=== PATIENT | female | born 1980 ===

== ENCOUNTER 2016-07-25 17:25 | Emergency (ER) | payer SELFPAY ==
[2016-07-25 18:25] LABS: RBC URINE 128 /hpf (0-3); URINE BACTERIA FEW (<OCC); URINE BILIRUBIN NEGATIVE (NEGATIVE); URINE BLOOD 3+ (NEGATIVE); URINE COLOR Yellow (YELLOW); URINE GLUCOSE (UA) NORMAL (Normal); URINE KETONE NEGATIVE (NEGATIVE); URINE LEUKOCYTE ESTERASE 2+ Leu/uL (Negative); URINE PROTEIN NEGATIVE (NEGATIVE); URINE UROBILINOGEN NORMAL mg/dL (0.2-1.0); WBC URINE 94 /hpf (0-5)
[2016-07-25] MEDS ORDERED: Sodium Chloride 0.9% 1,000 ML IV ONE (18:53)
[2016-07-25 19:44] LABS: BASO # 0.1 K/uL (0.0-0.2); BASO % 0.6 % (0.0-2.0); EOS # 0.1 K/uL (0.0-0.7); EOS % 0.7 % (0.0-4.0); HEMATOCRIT 38.7 % (34.0-47.0); LYMPH # 3.1 K/uL (1.0-4.3); LYMPH % 33.4 % (20.0-40.0); MEAN CELL VOLUME 82.4 fL (81.0-99.0); MEAN CORPUSCULAR HEMOGLOBIN 26.7 pg (27.0-31.0); MEAN CORPUSCULAR HGB CONC 32.4 g/dL (33.0-37.0); MEAN PLATELET VOLUME 8.8 fL (7.2-11.7); MONO # 0.4 K/uL (0.0-0.8); MONO % 4.2 % (0.0-10.0); RED CELL DISTRIBUTION WIDTH 14.2 % (11.5-14.5); WHITE BLOOD COUNT 9.3 K/uL (4.8-10.8)
[2016-07-25 19:50] LABS: CHLORIDE 102 mmol/L (98-107); SODIUM 137 mmol/L (132-148)
[2016-07-25 19:51] LABS: POTASSIUM 3.5 mmol/L (3.6-5.2)
[2016-07-25 19:53] LABS: ALB/GLOB RATIO 1.1 (1.0-2.1); ALKALINE PHOSPHATASE 72 U/L (38-126); AST/SGOT 18 U/L (14-36); BILIRUBIN,TOTAL 0.5 mg/dL (0.2-1.3); BLOOD UREA NITROGEN 8 mg/dL (7-17); CARBON DIOXIDE 21 mmol/L (22-30); GFR AFRICAN-AMERICAN > 60; GLUCOSE,RANDOM 81 mg/dL (65-105); TOTAL PROTEIN 7.8 g/dL (6.3-8.3)
[2016-07-25 19:54] LABS: ALT/SGPT 17 U/L (9-52); CALCIUM 8.4 mg/dl (8.6-10.4)
--- NOTE | 2016-07-25 20:58 | C.PDOC ---
Time Seen by Provider: 07/25/16 17:57 Chief Complaint (Nursing): Female Genitourinary History Per: Patient Onset/Duration Of Symptoms: Days (1) Current Symptoms Are (Timing): Still Present Severity: Moderate Quality Of Discomfort: Cramping, "Pain" Alleviating Factors: None Additional History Per: Prior Records Abnormal Vaginal Bleeding: Yes Last Menstral Period: 06/13/16 Past Medical History Reviewed: Historical Data, Nursing Documentation, Vital Signs Vital Signs: Last Vital Signs Temp 97.8 F 07/25/16 17:29 Pulse 70 07/25/16 17:29 Resp 16 07/25/16 17:29 BP 127/85 07/25/16 17:29 Pulse Ox 100 07/25/16 20:58 - Medical History PMH: No Chronic Diseases Surgical History: No Surg Hx Family History: States: Unknown Family Hx - Social History Hx Tobacco Use: No Hx Alcohol Use: No Hx Substance Use: No - Immunization History Hx Tetanus Toxoid Vaccination: No Hx Influenza Vaccination: No Hx Pneumococcal Vaccination: No Review Of Systems Except As Marked, All Systems Reviewed And Found Negative. Constitutional: Negative for: Fever, Weakness Cardiovascular: Negative for: Chest Pain Respiratory: Negative for: Shortness of Breath Gastrointestinal: Positive for: Abdominal Pain (suprapubic) Genitourinary: Positive for: Dysuria (?), Vaginal Bleeding Musculoskeletal: Positive for: Back Pain (lower). Negative for: Neck Pain Skin: Negative for: Rash Neurological: Negative for: Weakness, Numbness, Seizures, Altered Mental Status Physical Exam - Physical Exam Appears: Non-toxic, No Acute Distress Skin: Normal Color, Warm, Dry, No Rash Head: Atraumatic, Normacephalic Eye(s): bilateral: PERRL, EOMI Neck: Normal ROM, Supple Cardiovascular: Rhythm Regular Respiratory: Normal Breath Sounds, No Accessory Muscle Use Gastrointestinal/Abdominal: Soft, Tenderness (suprapubic), No Guarding, No Rebound Back: No CVA Tenderness Extremity: Normal ROM, No Pedal Edema, No Calf Tenderness Neurological/Psych: Oriented x3, Normal Motor, Normal Sensation ED Course And Treatment - Laboratory Results Result Diagrams: 07/25/16 19:39 07/25/16 19:39 Interpretation Of Abnormal: UTI Urine POC: Positive O2 Sat by Pulse Oximetry: 100 Pulse Ox Interpretation: Normal - CT Scan/US Pelvic US Other Rad Studies (CT/US): Read By Radiologist, Radiology Report Reviewed CT/US Interpretation: IMPRESSION: Intrauterine gestation too early to date; left corpus luteum. . Additional findings as described above. . Followup suggested to document development of a pole Disposition Counseled Patient/Family Regarding: Studies Performed, Diagnosis, Need For Followup, Rx Given - Disposition Disposition: HOME/ ROUTINE Disposition Time: 21:28 Condition: IMPROVED Additional Instructions: Drink plenty of fluids. Pelvic rest as instructed. Follow up with your [facility] doctor within 1 week for further evaluation and treatment. Return to the ER if you develop fever, dizziness, vomiting, severe pain, heavy bleeding, worsening of symptoms or if you have any other concerns. Prescriptions: Acetaminophen [Tylenol Extra Strength] 2 tab PO Q6 PRN #30 tablet PRN Reason: Pain, Moderate (4-7) Cephalexin [cephalexin] 500 mg PO BID #14 cap Instructions: Urinary Tract Infection in (ED), Threatened Miscarriage (ED) Print Language: SLOVENIAN - Clinical Impression Clinical Impression: Threatened in early , UTI (urinary tract infection) during
--- NOTE | 2016-07-25 21:06 | US ---
EXAM: US First Trimester, Transabdominal CLINICAL HISTORY: 35 years old, female; Pain; complicated by abdominal or pelvic pain; Generalized abdominal pain; First trimester; Gestational age or lmp: 06/14/2016; ; Additional info: Pain/bleeding R/O ectopic TECHNIQUE: Real-time transabdominal obstetrical ultrasound of the maternal pelvis and a first trimester with image documentation. COMPARISON: There are no prior studies for comparison. FINDINGS: Uterus: Uterus is anteflexed. The uterus measures approximately 8.5 x 6.1 x 6.3 cm. There is a small gestational sac in uterus difficult to further characterize. Adnexa: Neither ovary is identified IMPRESSION: Early intrauterine gestation difficult to further evaluate EXAM: US , Transvaginal CLINICAL HISTORY: 35 years old, female; Pain; complicated by abdominal or pelvic pain; Generalized abdominal pain; First trimester; Gestational age or lmp: 06/14/2016; ; Additional info: Pain/bleeding R/O ectopic TECHNIQUE: Real-time transvaginal obstetrical ultrasound of the maternal pelvis and a first trimester with image documentation. Transvaginal imaging was used for better evaluation of the fetus and adnexa. EXAM DATE/TIME: 07/25/2016 6:55 PM COMPARISON: There are no prior studies for comparison. FINDINGS: Uterus: Uterus measures approximately 10 x 5.3 x 7.2 cm. Cervix measures approximately 4 cm in length. There are nabothian cysts in the cervix. Gestation: There is a single intrauterine gestation.Gestational sac has mean diameter 9.2 mm.A yolk sac is present, internal diameter measures 2.7 mm. A pole is visible Right ovary: Right ovary measures approximately 2.68 x 1.82 x 1.60 cm.There is expected blood flow on Doppler imaging Left ovary: Left ovary measures approximately 3.28 x 2.41 x 2.97 cm. There is a corpus luteum the left ovary. There is expected blood flow on Doppler imaging. IMPRESSION: Intrauterine gestation too early to date; left corpus luteum Additional findings as described above. Followup suggested to document development of a pole
[2016-07-25 22:14] VITALS: BP 118/76; PULSE 78; RESP 20; TEMP 98.2; O2SAT 98
== END 2016-07-25 22:10 | disposition home or self-care (01) ==
LOC: C.ER 17:25
DX: O20.0 Threatened abortion (principal); O23.41 Unspecified infection of urinary tract in pregnancy, first trimester; Z3A.00 Weeks of gestation of pregnancy not specified
CPT/HCPCS: 76805; 76817; 80053; 81001; 84702; 84703; 85025; 86850; 86900; 87086; 96360; 99284; J7040

== ENCOUNTER 2017-09-21 06:40 | Emergency (ER) | payer SELFPAY ==
--- NOTE | 2017-09-21 07:38 | C.PDOC ---
History Of Present Illness 36 y/o female with lmp 03/19/17, s/p termination on 08/23/17, c/o heavy vaginal bleeding and lower abdominal pain x 3 days. pt sts she is soaking one pad per hour. pt c/o dysuria starting today. no fever chills, nausea or vomiting. 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 p[t has not other complaints. Time Seen by Provider: 09/21/17 07:11 Chief Complaint (Nursing): Abdominal Pain History Per: Patient History/Exam Limitations: no limitations Onset/Duration Of Symptoms: Days (3) Current Symptoms Are (Timing): Still Present Location Of Pain/Discomfort: Suprapubic Radiation Of Pain To:: None Quality Of Discomfort: "Pain" Associated Symptoms: Urinary Symptoms. denies: Fever, Chills, Nausea, Vomiting Abnormal Vaginal Bleeding: Yes Last Menstral Period: 03/19/17, s/p termination 08/23/17 : 2 Para: 1 Miscarriage: 1 Past Medical History Reviewed: Historical Data, Nursing Documentation, Vital Signs Vital Signs: Last Vital Signs Temp 98.4 F 09/21/17 11:59 Pulse 70 09/21/17 11:59 Resp 18 09/21/17 11:59 BP 111/72 09/21/17 11:59 Pulse Ox 96 09/21/17 11:59 - Medical History PMH: No Chronic Diseases Family History: States: Unknown Family Hx - Social History Hx Tobacco Use: No Hx Alcohol Use: No Hx Substance Use: No - Immunization History Hx Tetanus Toxoid Vaccination: No Hx Influenza Vaccination: No Hx Pneumococcal Vaccination: No Review Of Systems Constitutional: Negative for: Fever, Chills Gastrointestinal: Positive for: Abdominal Pain (suprapubic). Negative for: Nausea, Vomiting Genitourinary: Positive for: Dysuria, Vaginal Bleeding Skin: Negative for: Rash Neurological: Negative for: Weakness, Numbness Physical Exam - Physical Exam Appears: Non-toxic, No Acute Distress Skin: Warm, Dry Head: Atraumatic, Normacephalic Eye(s): bilateral: Normal Inspection Oral Mucosa: Moist Cardiovascular: Rhythm Regular, No Murmur Respiratory: No Decreased Breath Sounds, No Wheezing Gastrointestinal/Abdominal: Bowel Sounds, Soft, Tenderness (mild in suprapubic and left pelvic area), No Distention, No Guarding, No Rebound Neurological/Psych: Oriented x3, Normal Speech, Normal Cognition ED Course And Treatment - Laboratory Results Result Diagrams: 09/21/17 07:51 09/21/17 07:51 Urine POC: Negative O2 Sat by Pulse Oximetry: 99 - CT Scan/US pelvic Other Rad Studies (CT/US): Radiology Report Reviewed CT/US Interpretation: Solitary 2.0 cm lower uterine segment intramural anterior wall fibroid to the left. 4.2 cm septated cyst in the right ovary. No evidence for torsion. Follow-up ultrasound in three-month interval is recommended to assess stability/resolution. Medical Decision Making Medical Decision Makin36 y/o female 1 m s/p termination with heavy vag bleeding and lower abdominal pain; check labs, beta hcg. re-eval 1137 us shows uterine fibroid, and right ovarian cyst, d/c home with tax assessor f/u and repeat sono 3 months. pt with 6 wbc in ua, is symptomatic, devendra tx. Disposition Counseled Patient/Family Regarding: Studies Performed, Diagnosis, Need For Followup - Disposition Referrals: [facility] [Outside] Disposition: HOME/ ROUTINE Disposition Time: 11:35 Condition: GOOD Additional Instructions: La ecografa muestra un quiste ovrico derecho y un fibroma en el tero. La hemorragia que tiene hoy es probablemente berry perodo, tome antibiticos segn lo prescrito, gracie un seguimiento con berry ginecologa en la prxima semana. Recomiende que se gracie otra ecografa para evaluar el quiste ovrico en soraida meses. The ultrasound shows a right ovarian cyst and a fibroid in your uterus. The bleeding you have today is likely your period, Please take antibiotics as prescribed, Follow up with your gynecologiat in the next week. Recommend that you get another ultrasound to evaluation ovarian cyst in three months. Prescriptions: Nitrofurantoin Macrocrystals [Macrobid] 100 mg PO BID #14 cap Instructions: Urinary Tract Infection, Adult (DC), Ovarian Cyst (DC), Uterine Fibroids (DC) Forms: Gen Discharge Inst Polish, [employer] (Polish) Print Language: PANAMANIAN - Clinical Impression Clinical Impression: Ovarian cyst, right, Uterine fibroid, UTI (urinary tract infection)
[2017-09-21 07:58] LABS: SQUAMOUS EPITHIAL 4 /hpf (0-5); URINE BILIRUBIN NEGATIVE (NEGATIVE); URINE BLOOD 3+ (NEGATIVE); URINE CLARITY Hazy (Clear); URINE COLOR Yellow (YELLOW); URINE GLUCOSE (UA) NORMAL (Normal); URINE LEUKOCYTE ESTERASE TRACE Leu/uL (Negative); URINE PROTEIN NEGATIVE (NEGATIVE); URINE UROBILINOGEN NORMAL mg/dL (0.2-1.0)
[2017-09-21 08:05] LABS: BASO # 0.1 K/uL (0.0-0.2); BASO % 0.7 % (0.0-2.0); EOS # 0.1 K/uL (0.0-0.7); EOS % 1.6 % (0.0-4.0); HEMOGLOBIN 11.2 g/dL (11.0-16.0); LYMPH # 2.2 K/uL (1.0-4.3); LYMPH % 31.9 % (20.0-40.0); MEAN CORPUSCULAR HEMOGLOBIN 27.1 pg (27.0-31.0); MEAN CORPUSCULAR HGB CONC 33.7 g/dL (33.0-37.0); MEAN PLATELET VOLUME 8.7 fL (7.2-11.7); MONO # 0.5 K/uL (0.0-0.8); MONO % 6.9 % (0.0-10.0); NEUT # 4.1 K/uL (1.8-7.0); NEUT % 58.9 % (50.0-75.0); NRBC % 0.1 % (0.0-2.0); RBC 4.15 Mil/uL (3.80-5.20); RED CELL DISTRIBUTION WIDTH 21.5 % (11.5-14.5)
[2017-09-21 08:06] LABS: MEAN CELL VOLUME 80.3 fL (81.0-99.0)
[2017-09-21 08:12] LABS: ALB/GLOB RATIO 1.1 (1.0-2.1); ALT/SGPT 18 U/L (9-52); AST/SGOT 17 U/L (14-36); BLOOD UREA NITROGEN 12 mg/dL (7-17); CALCIUM 8.4 mg/dl (8.6-10.4); GFR AFRICAN-AMERICAN > 60; GFR NON-AFRICAN AMERICAN > 60
--- NOTE | 2017-09-21 11:32 | US ---
HISTORY: s/p termination. vag bleeding COMPARISON: None available. TECHNIQUE: Transabdominal and transvaginal pelvic ultrasound was performed. FINDINGS: UTERUS: Measures 10.4 x 4.9 x 6.6 cm. Anteverted and normal in size. There is a 2.0 x 1.6 x 2.0 cm intramural lower uterine segment anterior wall fibroid to the left. ENDOMETRIUM: Measures 4.3 mm in diameter. Unremarkable. CERVIX: No cervical abnormality identified. RIGHT OVARY: Enlarged and measures 5.2 x 2.7 x 4.1 cm. No solid mass. Normal flow. There is a 4.2 x 2.4 x 3.8 cm septated cyst. LEFT OVARY: Measures 2.1 x 1.5 x 2.6 cm. No solid mass. Normal flow. FREE FLUID: No significant free fluid noted. OTHER FINDINGS: None. IMPRESSION: Solitary 2.0 cm lower uterine segment intramural anterior wall fibroid to the left. 4.2 cm septated cyst in the right ovary. No evidence for torsion. Follow-up ultrasound in three-month interval is recommended to assess stability/resolution.
[2017-09-21 12:45] VITALS: BP 111/72; PULSE 70; RESP 18; TEMP 98.4
[2017-09-21 19:15] VITALS: O2SAT 99
== END 2017-09-21 12:45 | disposition home or self-care (01) ==
LOC: C.ER 06:40
DX: N83.201 Unspecified ovarian cyst, right side (principal); D25.9 Leiomyoma of uterus, unspecified; N39.0 Urinary tract infection, site not specified

== ENCOUNTER 2018-06-04 15:12 | Outpatient (CLI) | payer SELFPAY | END 2018-06-04 15:13 | disposition home or self-care (01) | LOC: C.USIC 15:12 ==

== ENCOUNTER 2018-06-26 09:26 | Outpatient (CLI) | payer SELFPAY | END 2018-06-26 09:27 | disposition home or self-care (01) | LOC: C.LAB 09:26 | DX: Z34.91 Encounter for supervision of normal pregnancy, unspecified, first trimester (principal) ==

== ENCOUNTER 2018-08-24 13:01 | Emergency (ER) | payer SELFPAY ==
--- NOTE | 2018-08-24 13:44 | C.PDOC ---
History Of Present Illness 37 yr old F at 18 weeks p/w vaginal bleeding. Pt notes vaginal bleeding this morning after having sex with her . She notes only 1 clot, small. No pain or other vaginal d/c. No Rash. No fall or trauma. No abdominal pain, constipation or diarrhea. No dark or bloody stool. No nausea or vomiting. No dysuria, urgency or frequency. No other complaints. LMP: 04/23/18 [employer] O[employer]: [facility]: [place] Time Seen by Provider: 08/24/18 13:17 Chief Complaint (Nursing): Female Genitourinary Past Medical History Vital Signs: Last Vital Signs Temp 97.9 F 08/24/18 13:05 Pulse 75 08/24/18 13:05 Resp 20 08/24/18 13:05 BP 119/79 08/24/18 13:05 Pulse Ox 100 08/24/18 13:05 Primary Care Provider: Catherine Rick Family History: States: Unknown Family Hx - Social History Hx Tobacco Use: No Hx Alcohol Use: No Hx Substance Use: No - Immunization History Hx Tetanus Toxoid Vaccination: No Hx Influenza Vaccination: No Hx Pneumococcal Vaccination: No Review Of Systems Constitutional: Negative for: Fever, Chills, Sweats, Weakness, Malaise Eyes: Negative for: Pain, Vision Change, Eyelid Inflammation, Redness ENT: Negative for: Ear Pain, Ear Discharge, Nose Pain, Nose Congestion, Mouth Pain, Mouth Swelling Cardiovascular: Negative for: Chest Pain, Palpitations, Orthopnea Respiratory: Negative for: Cough, Shortness of Breath, SOB with Excertion, Pleuritic Pain, Sputum Gastrointestinal: Negative for: Nausea, Vomiting, Abdominal Pain, Diarrhea, Constipation, Melena, Hematochezia, Hematemesis Genitourinary: Positive for: Vaginal Bleeding. Negative for: Dysuria, Frequency, Incontinence, Hematuria, Vaginal Discharge, Pelvic Pain Musculoskeletal: Negative for: Neck Pain, Shoulder Pain, Arm Pain, Back Pain, Hand Pain, Leg Pain Skin: Negative for: Rash, Lesions, Jaundice, Bruising Neurological: Negative for: Weakness, Numbness, Altered Mental Status, Headache Psych: Negative for: Anxiety, Depression, Psychosis, Suicidal ideation Physical Exam - Physical Exam Appears: Well, Non-toxic, No Acute Distress Skin: Normal Color, Warm, Dry Head: Atraumatic, Normacephalic Eye(s): bilateral: Normal Inspection, PERRL, EOMI Ear(s): Bilateral: Normal Nose: Normal Tongue: Normal Appearing Lips: Normal Appearing Throat: Normal, No Erythema, No Exudate, No Drooling, No Mass Neck: Normal, Normal ROM, Supple, Other (no meningeal signs) Lymphatic: No Adenopathy Cardiovascular: Rhythm Regular, No Friction Rub, No Murmur, No JVD Respiratory: Normal Breath Sounds, No Rales, No Rhonchi, No Stridor, No Wheezing Gastrointestinal/Abdominal: Normal Exam, Soft, No Tenderness, No Organomegaly, No Mass, No Distention, No Guarding Back: Normal Inspection, No CVA Tenderness, No Vertebral Tenderness Extremity: Normal ROM, No Tenderness, No Pedal Edema Extremity: Bilateral: Atraumatic Neurological/Psych: Oriented x3, Normal Speech, Normal Cognition, No Cerebellar Signs Gait: Steady ED Course And Treatment - Laboratory Results Result Diagrams: 08/24/18 13:45 08/24/18 13:45 O2 Sat by Pulse Oximetry: 100 Medical Decision Making Medical Decision Makin yr old F at 18 weeks p/w vaginal bleeding. Vaginal bleeding s/p intercourse this morning. No bright red blood. x1 clot noted / spotting. No dark or bloody stool. No current vaginal d/c. vaginal pain. Denies any fall or trauma. No abd tenderness on exam. No CVAT or back pain. No rash. Likely threatened ab. Pending imaging and labs 1503 labs largely unremarkable RH+, A+ blood type: No indication for rhogram. pending TVUS 1715 TVUS unremarkable, fibroid noted but otherwise @ 18weeks w/ closed cervix pt in NAD, shared findings, remains w/ out pain or current vaginal d/c endorsed pelvic rest and f/u and return indications. Pt agreeable to plan. Disposition - Disposition Referrals: Catherine Rick, HEIDIP-BC [Advanced Practice Nurse] - [facility] [Outside] [facility] [Outside] [facility] [Outside] [facility] [Outside] Krystle Osorio MD [Staff Provider] - Disposition: HOME/ ROUTINE Disposition Time: 17:17 Condition: STABLE Additional Instructions: DO NOT HAVE VAGINAL / ANAL SEX UNTIL CLEARED BY YOUR OBGYN. (PELVIC REST) YOU HAVE A FIBROID AND ARE . fOLLOW UP WITH YOUR OBGYN OR ONE WE HAVE MD OVIDED MARLO HALL, thank you for letting us take care of you today. Your provider was Garth Dennis and you were treated for VAGINAL BLEEDING/18 WKS . The emergency medical care you received today was directed at your acute symptoms. If you were prescribed any medication, please fill it and take as directed. It may take several days for your symptoms to resolve. Return to the Emergency Department if your symptoms worsen, do not improve, or if you have any other problems. Please contact your doctor or call one of the physicians/clinics you have been referred to that are listed on the Patient Visit Information form that is included in your discharge packet. Bring any paperwork you were given at discharge with you along with any medications you are taking to your follow up visit. Our treatment cannot replace ongoing medical care by a primary care provider outside of the emergency department. Thank you for allowing the [facility] team to be part of your care today. If you had an X-Ray or CT scan: A Radiologist will review the ED reading if any change in treatment is needed we will contact you. If you had a blood, urine, or wound culture: It will take several days for the results, if any change in treatment is needed we will contact you. If you had an STI test: It will take 48 hours for the results. Please call after 1 week if you have not heard back. Instructions: Threatened Miscarriage (DC), Bleeding With (DC) Forms: [employer] (Italian) - Clinical Impression Clinical Impression: Threatened , Fibroid
[2018-08-24 13:54] LABS: SQUAMOUS EPITHIAL 1 /hpf (0-5); URINE BILIRUBIN NEGATIVE (NEGATIVE); URINE BLOOD 3+ (NEGATIVE); URINE CLARITY Clear (Clear); URINE COLOR Straw (YELLOW); URINE GLUCOSE (UA) NORMAL (Normal); URINE LEUKOCYTE ESTERASE NEG Leu/uL (Negative); URINE PROTEIN NEGATIVE (NEGATIVE); URINE UROBILINOGEN NORMAL mg/dL (0.2-1.0)
[2018-08-24 13:55] LABS: BASO % 0.4 % (0.0-2.0); EOS # 0.1 K/uL (0.0-0.7); EOS % 2.2 % (0.0-4.0); HEMOGLOBIN 10.9 g/dL (11.0-16.0); LYMPH # 1.7 K/uL (1.0-4.3); LYMPH % 25.1 % (20.0-40.0); MEAN CELL VOLUME 75.7 fL (81.0-99.0); MEAN CORPUSCULAR HEMOGLOBIN 25.1 pg (27.0-31.0); MEAN CORPUSCULAR HGB CONC 33.1 g/dL (33.0-37.0); MEAN PLATELET VOLUME 8.6 fL (7.2-11.7); MONO # 0.4 K/uL (0.0-0.8); MONO % 6.6 % (0.0-10.0); NEUT # 4.4 K/uL (1.8-7.0); NEUT % 65.7 % (50.0-75.0); RBC 4.34 Mil/uL (3.80-5.20); RED CELL DISTRIBUTION WIDTH 18.1 % (11.5-14.5); WHITE BLOOD COUNT 6.7 K/uL (4.8-10.8)
[2018-08-24 14:03] LABS: ALBUMIN 3.7 g/dL (3.5-5.0); ALT/SGPT 21 U/L (9-52); AST/SGOT 16 U/L (14-36); BLOOD UREA NITROGEN 5 mg/dL (7-17); CALCIUM 8.6 mg/dl (8.6-10.4); GFR NON-AFRICAN AMERICAN > 60; INR 1.2; PARTIAL THROMBOPLASTIN TIME 31.2 SECONDS (21-34); PROTHROMBIN TIME 12.8 SECONDS (9.7-12.2)
[2018-08-24 14:45] VITALS: PULSE 78
[2018-08-24 15:04] VITALS: O2SAT 100
--- NOTE | 2018-08-24 16:37 | US ---
Date of service: 08/24/2018 PROCEDURE: OB Pelvic Ultrasound HISTORY: vag bleeding LMP: 04/23/2018 COMPARISON: Comparison is made with 06/04/2018 FINDINGS: UTERUS: Gestational sac: Single intrauterine gestation. Heart rate: 148 bpm. age (Ultrasound estimated): 18 weeks 3 days +/-1 week 2 days Naomy-gestational hemorrhage: None. Date of delivery (Ultrasound estimated) : 01/22/2019 The seen at the anterior. The amount of amniotic fluid is adequate. There is a posterior lower uterine segment fibroid measures 3 x 2.5 x 2.9 centimeter. CERVIX: The cervix measures 3.9 centimeter. Long and closed. No cervical abnormality seen. RIGHT OVARY: Was not visualized LEFT OVARY: Was not visualized. FREE FLUID: None. OTHER FINDINGS: Single intrauterine live with ultrasound estimated gestational age of 18 weeks 3 days. Estimated date of delivery by ultrasound is 01/22/2019. 3 centimeter fibroid at lower uterine segment posterior wall. IMPRESSION: Unremarkable pelvic ultrasound.
[2018-08-24 17:44] VITALS: BP 112/69; RESP 18; TEMP 98.4
== END 2018-08-24 17:45 | disposition home or self-care (01) ==
LOC: C.ER 13:01
DX: O20.0 Threatened abortion (principal); O34.12 Maternal care for benign tumor of corpus uteri, second trimester; D25.9 Leiomyoma of uterus, unspecified; Z3A.18 18 weeks gestation of pregnancy